=== PATIENT | female | born 1935 | race Caucasian/White ===

== ENCOUNTER 2016-12-18 07:28 | Day surgery (SDC) | payer MEDICARE ==
[~2016-12-18 07:28] MED LIST: CHONDR SU A NA/HYALUR INTRAOC KIT (SURGICARE) ONE; EPINEPHRINE INJ/PF 1 MG/1 ML AMPULE ONE; KETOROLAC TROMETHAMINE 0.45% 4 DROP/0.4 ML DROPERETTE OD PRN; LIDOCAINE 1% INJ-PF (10 MG/ML) 30 ML SDV ONE; TOBRAMYCIN SULFATE/DEXAMETH OPH OINTMENT 3.5 GM ONE
[2016-12-18] MEDS: TROPICAMIDE 1% OPH SOLN 3 ML OD PRN ×3 (07:57→08:17)
[2016-12-18] MEDS: CYCLOPENTOLATE 0.2%/PHENYLEPHRINE 1% OPH SOLN 2 ML OD PRN ×3 (07:57→08:17)
[2016-12-18] MEDS: BESIFLOXACIN HCL 0.6% OPH SUSP 5 ML BOTTLE OD PRN ×3 (07:57→08:59)
[2016-12-18] MEDS: LIDOCAINE 3.5% OPH GEL/PF 1 ML/TUBE OD PRN ×2 (07:58→08:17)
[2016-12-18] MEDS ORDERED: MIDAZOLAM 2 MG/2 ML INJ ONE ×2 (08:20→08:44)
[2016-12-18] MEDS ORDERED: FENTANYL CITRATE INJ/PF 100 MCG/2 ML AMPUL ONE (08:56)
== END 2016-12-18 09:41 | disposition home or self-care (01) ==
LOC: SC 07:28
PROVIDERS: ATTEND Ophthalmology
PROC: 08RJ3JZ Replacement of Right Lens with Synthetic Substitute, Percutaneous Approach (ICD-10-PCS; principal; 2016-12-18 08:30)
DX: H25.11 Age-related nuclear cataract, right eye (principal); M19.90 Unspecified osteoarthritis, unspecified site; I10 Essential (primary) hypertension; F32.9 Major depressive disorder, single episode, unspecified; K21.9 Gastro-esophageal reflux disease without esophagitis; Z79.899 Other long term (current) drug therapy
CPT/HCPCS: 66984; V2630; J2250; J3490 ×3; A9270 ×2; J0171; J3010; 142

== ENCOUNTER 2017-01-01 07:53 | Day surgery (SDC) | payer MEDICARE ==
[~2017-01-01 07:53] MED LIST changes: -KETOROLAC TROMETHAMINE 0.45% 4 DROP/0.4 ML DROPERETTE OD PRN; +KETOROLAC TROMETHAMINE 0.45% 4 DROP/0.4 ML DROPERETTE OS PRN
[2017-01-01] MEDS: CYCLOPENTOLATE 0.2%/PHENYLEPHRINE 1% OPH SOLN 2 ML OS PRN ×3 (08:10→08:32)
[2017-01-01] MEDS: TETRACAINE HCL 0.5% OPH SOLN 0.6 ML DROPERETTE OS PRN ×3 (08:10→08:58)
[2017-01-01] MEDS: TROPICAMIDE 1% OPH SOLN 3 ML OS PRN ×3 (08:10→08:32)
[2017-01-01] MEDS: BESIFLOXACIN HCL 0.6% OPH SUSP 5 ML BOTTLE OS PRN ×3 (08:10→09:18)
[2017-01-01] MEDS ORDERED: FENTANYL CITRATE INJ/PF 100 MCG/2 ML AMPUL ONE (08:42)
[2017-01-01] MEDS ORDERED: MIDAZOLAM 2 MG/2 ML INJ ONE ×2 (08:42→09:04)
== END 2017-01-01 10:10 | disposition home or self-care (01) ==
LOC: SC 07:53
PROVIDERS: ATTEND Ophthalmology
PROC: 08RK3JZ Replacement of Left Lens with Synthetic Substitute, Percutaneous Approach (ICD-10-PCS; principal; 2017-01-01 09:00)
DX: H25.12 Age-related nuclear cataract, left eye (principal); Z98.41 Cataract extraction status, right eye; I10 Essential (primary) hypertension; K21.9 Gastro-esophageal reflux disease without esophagitis; Z79.899 Other long term (current) drug therapy; Z87.891 Personal history of nicotine dependence
CPT/HCPCS: 66984; V2630; J2250; J3490 ×3; A9270; J0171; J3010; 142

== ENCOUNTER 2017-03-02 15:37 | Observation (INO) | payer MEDICARE ==
--- NOTE | 2017-03-02 17:43 | EKG REPORT ---
SEVERITY:- OTHERWISE NORMAL ECG - SINUS RHYTHM BORDERLINE LEFT AXIS DEVIATION : Confirmed by: Javed Scherer MD 02-Mar-2017 17:42:37
[2017-03-02 18:40] LABS: ABSOLUTE EOSINOPHILS # (AUTO) 0.3 10^3/uL (0.0-0.6); ABSOLUTE LYMPHOCYTES (AUTO) 1.7 10^3/uL (0.5-4.7); ABSOLUTE MONOCYTES (AUTO) 0.7 10^3/uL (0.1-1.4); BASOPHILS % (AUTO) 0.5 % (0-2); HEMATOCRIT 34.9 % (36.0-47.0); HEMOGLOBIN 11.4 g/dL (12.0-15.5); HGB HCT DIFFERENCE -0.7; LYMPHOCYTES % (AUTO) 19.2 % (13-45); MEAN CORPUSCULAR HEMOGLOBIN 26.2 pg (27.0-33.4); MEAN CORPUSCULAR HGB CONC 32.6 g/dL (32.0-36.0); MEAN CORPUSCULAR VOLUME 80 fl (80-97); MONOCYTES % (AUTO) 7.8 % (3-13); RED BLOOD COUNT 4.35 10^6/uL (3.72-5.28); RED CELL DISTRIBUTION WIDTH 15.6 % (11.5-14.0); SEGMENTED NEUTROPHILS % (AUTO) 69.5 % (42-78); WHITE BLOOD COUNT 8.7 10^3/uL (4.0-10.5)
--- NOTE | 2017-03-02 18:40 | ER Document Report ---
ED General - General Chief Complaint: Dizziness Stated Complaint: DIZZINESS Time Seen by Provider: 03/02/17 18:07 Mode of Arrival: Medic Information source: Patient, Relative Notes: This is an 82-year-old female with a history of hypertension who is brought in by EMS for headache, vertigo, difficulty ambulating and right-sided weakness. Patient is unable to state when the weakness started. TRAVEL OUTSIDE OF THE [place] IN LAST 30 DAYS: No - HPI Onset: This morning Onset/Duration: Gradual Quality of pain: No pain Severity: None Pain Level: Denies Associated symptoms: denies: Chills, Fever, Shortness of breath Exacerbated by: Denies Relieved by: Denies Similar symptoms previously: No Recently seen / treated by doctor: No - Related Data Allergies/Adverse Reactions: No Known Allergies Allergy (Verified 01/01/17 08:18) Home Medications: Current Home Medications Amlodipine Besylate [Amlodipine Besylate] 1 tab PO DAILY 03/02/17 [History] Benazepril HCl 20 mg PO DAILY 03/02/17 [History] Clonazepam [Clonazepam] 1 tab PO PRN PRN 03/02/17 [History] Hydrocodone/Acetaminophen [Hydrocodon-Acetaminophen 5-325] 1 each PO QID PRN 06/14 [History] Past Medical History - General Information source: Patient - Social History Smoking Status: Never Smoker Cigarette use (# per day): No Chew tobacco use (# tins/day): No Frequency of alcohol use: None Drug Abuse: None Lives with: Family Family History: Reviewed & Not Pertinent Patient has suicidal ideation: No Patient has homicidal ideation: No - Past Medical History Cardiac Medical History: Reports: Hx Hypertension - MEDICATED Denies: Hx Heart Attack Pulmonary Medical History: Denies: Hx Asthma Neurological Medical History: Denies: Hx Cerebrovascular Accident, Hx Seizures Renal/ Medical History: Denies: Hx Peritoneal Dialysis GI Medical History: Reports: Hx Hiatal Hernia - ALSO HX OF BARRETTS ESOPHAGUS. Denies: Hx Hepatitis, Hx Ulcer Infectious Medical History: Denies: Hx Hepatitis Past Surgical History: Reports: Hx Hysterectomy. Denies: Hx Mastectomy, Hx Open Heart Surgery, Hx Pacemaker Review of Systems - Review of Systems Constitutional: denies: Chills, Fever EENT: No symptoms reported Cardiovascular: No symptoms reported Respiratory: No symptoms reported Gastrointestinal: No symptoms reported Genitourinary: No symptoms reported Female Genitourinary: No symptoms reported Musculoskeletal: No symptoms reported Skin: No symptoms reported Hematologic/Lymphatic: No symptoms reported Neurological/Psychological: See HPI Physical Exam - Vital signs Vitals: Temp Pulse Resp BP Pulse Ox 97.5 F 83 14 173/71 H 97 03/02/17 15:42 03/02/17 15:42 03/02/17 15:42 03/02/17 15:42 03/02/17 15:42 Notes: Physical exam: GENERAL: 82-year-old female, alert and oriented 3, no acute distress HEAD: Normocephalic. Patient has mild bruising over the right temporal area from a fall 2 weeks ago. Patient has no tenderness over the temporal arteries. EYES: Pupils equal round and reactive to light, extraocular movements intact, sclera anicteric, conjunctiva are normal. ENT: TMs normal, nares patent, oropharynx clear without exudates. Moist mucous membranes. NECK: Normal range of motion, supple without obvious mass or JVD. LUNGS: Breath sounds clear to auscultation bilaterally and equal. No wheezes rales or rhonchi. HEART: Regular rate and rhythm without murmurs, rubs or gallops. ABDOMEN: Soft, normoactive bowel sounds. No tenderness to palpation. No guarding, no rebound. No masses appreciated. EXTREMITIES: Normal range of motion, no pitting or edema. No clubbing or cyanosis. NEUROLOGICAL: Cranial nerves II through XII grossly intact. Normal speech, moving all extremities. Motor exam: Patient does have weakness to the right upper and right lower extremity (4/5). Reflexes are symmetrical PSYCH: Normal mood, normal affect. SKIN: Warm, Dry, normal turgor, no rashes or lesions noted. Course - Re-evaluation Re-evalutation: 03/02/17 20:59 The patient does have right-sided weakness on exam and my suspicion is that she did have a CVA. She does not meet criteria for thrombolytics at this time. There is no way to know exactly when her symptoms started. She is unsure as to when exactly the weakness began. She had issues with vertigo a few weeks ago and again today. But she was not able to tell me a specific time on when the weakness started. - Vital Signs Vital signs: Temp Pulse Resp BP Pulse Ox 98.1 F 83 18 152/58 H 96 03/02/17 23:07 03/02/17 16:03 03/02/17 22:04 03/02/17 22:04 03/02/17 22:04 - Laboratory Result Diagrams: 03/02/17 15:55 03/02/17 15:55 Laboratory results interpreted by me: 03/02/17 03/02/17 03/02/17 15:55 15:55 18:34 Hgb 11.4 L Hct 34.9 L MCH 26.2 L RDW 15.6 H Sodium 145.2 H BUN 23 H Neonat Total Bilirubin 0.0 L Ur Leukocyte Esterase TRACE H - Diagnostic Test Radiology reviewed: Image reviewed, Reports reviewed - CT shows no obvious - EKG Interpretation by Me Rate: Normal Rhythm: NSR - EKG shows normal sinus rhythm with a ventricular rate of 70, no acute ST-T wave changes Discharge - Discharge Clinical Impression: CVA (cerebral vascular accident) Qualifiers: CVA mechanism: unspecified Qualified Code(s): I63.9 - Cerebral infarction, unspecified Condition: Stable Disposition: ADMITTED INPATIENT Admitting Provider: Hospitalist - Dr. Delong Unit Admitted: [facility]
[2017-03-02 18:46] LABS: ALBUMIN 4.1 g/dL (3.5-5.0); ANION GAP 12 (5-19); BILIRUBIN,DIRECT 0.3 mg/dL (0.0-0.4); BILIRUBIN,TOTAL 0.3 mg/dL (0.2-1.3); BLOOD UREA NITROGEN 23 mg/dL (7-20); CARBON DIOXIDE 27 mmol/L (22-30); CHLORIDE 106 mmol/L (98-107); CREATININE RESULT 0.86 mg/dL (0.52-1.25); GLUCOSE 103 mg/dL (75-110); POTASSIUM 3.8 mmol/L (3.6-5.0); SODIUM 145.2 mmol/L (137-145); TOTAL PROTEIN 6.9 g/dL (6.3-8.2)
[2017-03-02] MEDS ORDERED: METOCLOPRAMIDE HCL INJ/PF 10 MG/2 ML SDV IV ONE (18:57)
[2017-03-02] MEDS ORDERED: DIPHENHYDRAMINE HCL 50 MG/ML VIAL IV ONE (18:57)
[2017-03-02] MEDS ORDERED: ACETAMINOPHEN 325 MG TABLET PO ONE (18:58)
[2017-03-02 18:59] LABS: ALANINE AMINOTRANSFERASE 22 U/L (9-52); ALKALINE PHOSPHATASE 88 U/L (38-126); ASPARTATE AMINO TRANSFERASE 20 U/L (14-36); CALCIUM 9.3 mg/dL (8.4-10.2)
--- NOTE | 2017-03-02 19:01 | RADIOLOGY REPORT (SQ) ---
EXAM DESCRIPTION: CT HEAD WITHOUT COMPLETED DATE/TIME: 03/02/2017 6:49 pm REASON FOR STUDY: valdovinos, right sided weakness COMPARISON: None. TECHNIQUE: Axial images acquired through the brain without intravenous contrast. Images reviewed wi th bone, brain and subdural windows. Images stored on PACS. All CT scanners at this facility use dose modulation, iterative reconstruction, and/or weight based d osing when appropriate to reduce radiation dose to as low as reasonably achievable (ALARA). [facility]: Dose Right [facility]: CareDose [facility]: Dose Right [facility]: Teradose 4D [facility]: [employer] Technologies RADIATION DOSE: mGy. LIMITATIONS: None. FINDINGS: VENTRICLES: Age-appropriate. CEREBRUM: No masses. No hemorrhage. No midline shift. Areas of low density in the white matter mos t likely due to chronic micro-vascular ischemic change. No evidence for acute infarction. CEREBELLUM: No masses. No hemorrhage. No alteration of density. No evidence for acute infarction. EXTRAAXIAL SPACES: Age-related involutional change. No fluid collections. No masses. ORBITS AND GLOBE: No intra- or extraconal masses. Normal contour of globe without masses. CALVARIUM: No fracture. PARANASAL SINUSES: No fluid or mucosal thickening. SOFT TISSUES: No mass or hematoma. OTHER: No other significant finding. IMPRESSION: CHRONIC CHANGES OF ATROPHY AND MICROVASCULAR ISCHEMIA. NO ACUTE PROCESS. EVIDENCE OF ACUTE STROKE: NO. TECHNICAL DOCUMENTATION: JOB ID: [id number] [place]-72 Quality ID # [id number]: Final reports with documentation of one or more dose reduction techniques (e.g., Au tomated exposure control, adjustment of the mA and/or kV according to patient size, use of iterative reconstruction technique) 2010 [employer]- All Rights Reserved
[2017-03-02 19:03] LABS: ALCOHOL < 10 mg/dL (NONE DETECTED)
--- NOTE | 2017-03-02 19:11 | RADIOLOGY REPORT (SQ) ---
EXAM DESCRIPTION: CHEST SINGLE VIEW COMPLETED DATE/TIME: 03/02/2017 6:58 pm REASON FOR STUDY: headache, right sided weakness COMPARISON: None. EXAM PARAMETERS: NUMBER OF VIEWS: One view. TECHNIQUE: Single frontal radiographic view of the chest acquired. RADIATION DOSE: NA LIMITATIONS: None. FINDINGS: LUNGS AND PLEURA: No acute opacities, masses or pneumothorax. No pleural effusion. MEDIASTINUM AND HILAR STRUCTURES: No masses. Contour normal. HEART AND VASCULAR STRUCTURES: Heart normal in size. Normal vasculature. BONES: No acute findings. HARDWARE: None in the chest. OTHER: No other significant finding. IMPRESSION: NO ACUTE RADIOGRAPHIC FINDING IN THE CHEST. TECHNICAL DOCUMENTATION: JOB ID: [id number] [place]-72 2010 [employer]- All Rights Reserved
[2017-03-02 19:33] LABS: CREATINE KINASE MB 0.58 ng/mL (<4.55)
[2017-03-02 19:34] LABS: APPEARANCE,URINE CLEAR; BILIRUBIN,URINE NEGATIVE (NEGATIVE); GLUCOSE, URINE NEGATIVE (NEGATIVE); KETONES,URINE NEGATIVE (NEGATIVE); LEUKOCYTE ESTERASE,URINE TRACE (NEGATIVE); NITRITE,URINE NEGATIVE (NEGATIVE); PROTEIN,URINE NEGATIVE (NEGATIVE); URINE SPECIFIC GRAVITY 1.006; UROBILINOGEN,URINE NEGATIVE mg/dL (<2.0)
[2017-03-02 19:38] LABS: URINE BARBITURATES SCREEN NEGATIVE; URINE METHADONE SCREEN NEGATIVE; URINE OPIATES LOW UNCONFIRMED POSITIVE; URINE PHENCYCLIDINE SCREEN NEGATIVE
[2017-03-02 19:45] LABS: TROPONIN I < 0.012 ng/mL
[2017-03-02 20:04] LABS: RBC,URINE 0-1 /HPF; WBC,URINE 0-1 /HPF
[2017-03-02 20:05] LABS: BACTERIA,URINE TRACE /HPF
[2017-03-02] MEDS ORDERED: ACETAMINOPHEN 325 MG TABLET PO PRN (21:27)
[2017-03-02] MEDS ORDERED: MAGNESIUM HYDROXIDE SUSP 30 ML UDCUP PO PRN (21:27)
[2017-03-02] MEDS ORDERED: ONDANSETRON HCL INJ/PF 4 MG/2 ML SDV IV PRN (21:27)
[2017-03-02] MEDS ORDERED: DOCUSATE SODIUM 100 MG CAPSULE PO PRN (21:27)
[2017-03-02] MEDS ORDERED: LABETALOL HCL INJ 20 MG/4 ML DISP.SYRIN IV PRN (21:27)
[2017-03-02] MEDS ORDERED: MORPHINE SULFATE 10 MG/ML INJ IV ONE (21:32)
[2017-03-02] MEDS ORDERED: PROCHLORPERAZINE EDISYLATE INJ 10 MG/2 ML VIAL IV ONE (21:32)
[2017-03-02] MEDS ORDERED: (PENDING PHARMACY ID) (Clonazepam [Clonazepam] 1 TAB) PO PRN (21:33)
[2017-03-02] MEDS ORDERED: ASPIRIN 325 MG TABLET, ENT COATED PO ONE (22:00)
[2017-03-02] MEDS: ATORVASTATIN CALCIUM 80 MG TABLET PO SCH (22:16)
--- NOTE | 2017-03-02 22:25 | PDOC H&P ---
History of Present Illness Admission Date/PCP: 03/02/17 21:12 History of Present Illness: NANCY GILLETTE is a 82 year old female with past medical history of hypertension, hyperlipidemia, spinal stenosis, Bernard's esophagus, hiatal hernia who presents to the emergency department with complaints of vertigo. Patient reports she had an episode of vertigo approximately 2 weeks ago. She reports today she was about ready to drift off to sleep when she noticed that she began having vertigo that was worse when she turned her head to the right as well as right sided weakness starting at approximately 3 PM today. Patient presented to the emergency department outside the window for lytics. Patient reports that 2 weeks ago when she had an episode of vertigo she fell and hit her head on the door frame. She denies any associated nausea or vomiting, fevers chills, or antecedent illness. She is referred to the hospital service for concerns for acute CVA Past Medical History Cardiac Medical History: Reports: Hyperlipidema, Hypertension - MEDICATED Denies: Myocardial Infarction Pulmonary Medical History: Denies: Asthma EENT Medical History: Reports: Cataracts Neurological Medical History: Denies: Seizures GI Medical History: Reports: Hiatal Hernia - ALSO HX OF BARRETTS ESOPHAGUS, Other - Bernard's esophagus Denies: Hepatitis Hematology: Denies: Anemia, Sickle Cell Disease Past Surgical History Past Surgical History: Reports: Cholecystectomy, Hysterectomy, Other - Recent cataract surgery Denies: Amputation, Mastectomy, Pacemaker Social History Smoking Status: Never Smoker Frequency of Alcohol Use: None Hx Recreational Drug Use: No Hx Prescription Drug Abuse: No - Advance Directive Resuscitation Status: Full Code Surrogate healthcare decision maker:: Cecille Christie, daughter Family History Family History: CAD, Other - Old age Parental Family History Reviewed: Yes Children Family History Reviewed: Yes Sibling(s) Family History Reviewed.: Yes Medication/Allergy Home Medications: Flaxseed Oil [Flax Seed Oil] 1,000 mg PO QAM 12/13/16 Lovastatin [Altoprev] 40 mg PO QAM 12/13/16 Meloxicam 15 mg PO QAM 12/13/16 Omeprazole 40 mg PO QAM 12/13/16 Cholecalciferol (Vitamin D3) [Vitamin D3 1000 Unit Tablet] 2,000 unit PO DAILY 12/18/16 Amlodipine Besylate [Amlodipine Besylate] 1 tab PO DAILY 03/02/17 Benazepril HCl 20 mg PO DAILY 03/02/17 Clonazepam [Clonazepam] 1 tab PO PRN PRN 03/02/17 Hydrocodone/Acetaminophen [Hydrocodon-Acetaminophen 5-325] 1 each PO QID PRN 06/14 Allergies/Adverse Reactions: No Known Allergies Allergy (Verified 01/01/17 08:18) Review of Systems Constitutional: PRESENT: headache(s). ABSENT: chills, fever(s), weight gain, weight loss Eyes: ABSENT: visual disturbances Ears: ABSENT: hearing changes Nose, Mouth, and Throat: PRESENT: headache(s) Cardiovascular: PRESENT: dyspnea on exertion - More than normal, edema - Occasional. ABSENT: chest pain, orthropnea, palpitations Respiratory: ABSENT: cough, dyspnea, hemoptysis, sputum Gastrointestinal: ABSENT: abdominal pain, constipation, diarrhea, hematemesis, hematochezia, melena, nausea, vomiting Genitourinary: ABSENT: dysuria, hematuria Musculoskeletal: ABSENT: joint swelling Integumentary: ABSENT: rash, wounds Neurological: ABSENT: abnormal gait, abnormal speech, confusion, dizziness, focal weakness, syncope Psychiatric: ABSENT: anxiety, depression, homidical ideation, suicidal ideation Endocrine: ABSENT: cold intolerance, heat intolerance, polydipsia, polyuria Hematologic/Lymphatic: ABSENT: easy bleeding, easy bruising Physical Exam Vital Signs: Temp Pulse Resp BP Pulse Ox 97.5 F 83 20 115/74 96 03/02/17 15:42 03/02/17 16:03 03/02/17 21:05 03/02/17 21:05 03/02/17 21:05 General appearance: PRESENT: no acute distress, well-developed, well-nourished Head exam: PRESENT: normocephalic, other - Tenderness to palpation right jehovah's witness. ABSENT: atraumatic - Right temporal bruise Eye exam: PRESENT: conjunctiva pink, EOMI, PERRLA. ABSENT: conjunctival injection, periorbital swelling, scleral icterus Ear exam: PRESENT: normal external ear exam Mouth exam: PRESENT: moist, tongue midline Neck exam: ABSENT: carotid bruit, JVD, lymphadenopathy, thyromegaly, tracheal deviation Respiratory exam: PRESENT: clear to auscultation yifan, symmetrical, unlabored. ABSENT: rales, rhonchi, wheezes Cardiovascular exam: PRESENT: RRR, +S1, +S2, systolic murmur - 1/6 lusb. ABSENT : diastolic murmur, rubs Pulses: PRESENT: normal dorsalis pedis pul Vascular exam: PRESENT: normal capillary refill GI/Abdominal exam: PRESENT: normal bowel sounds, soft. ABSENT: distended, firm , guarding, mass, Morales's sign, organolmegaly, rebound, rigid, tenderness Rectal exam: PRESENT: deferred Extremities exam: PRESENT: full ROM. ABSENT: calf tenderness, clubbing, pedal edema Neurological exam: PRESENT: alert, awake, oriented to person, oriented to place , oriented to time, oriented to situation, CN II-XII grossly intact, motor sensory deficit - strength 4+/5 RUE, 4/5 RLE Psychiatric exam: PRESENT: appropriate affect, normal mood. ABSENT: homicidal ideation, suicidal ideation Skin exam: PRESENT: dry, intact, warm. ABSENT: cyanosis, rash Results Laboratory Results: 03/02/17 03/02/17 03/02/17 15:55 15:55 15:55 WBC 8.7 Hgb 11.4 L Hct 34.9 L Plt Count 292 Sodium 145.2 H Potassium 3.8 Chloride 106 Carbon Dioxide 27 BUN 23 H Creatinine 0.86 Glucose 103 Calcium 9.3 Magnesium 2.0 Total Bilirubin 0.3 Direct Bilirubin 0.3 ALT 22 Alkaline Phosphatase 88 Creatine Kinase 50 C-Reactive Protein Total Protein 6.9 Albumin 4.1 Ur Specific [place] Ur Leukocyte Esterase Urine RBC Urine WBC Ur Squamous Epith Cells Urine Bacteria Urine Mucus Urine Opiates Screen Serum Alcohol < 10 03/02/17 03/02/17 03/02/17 15:55 18:34 18:34 WBC Hgb Hct Plt Count Sodium Potassium Chloride Carbon Dioxide BUN Creatinine Glucose Calcium Magnesium Total Bilirubin Direct Bilirubin ALT Alkaline Phosphatase Creatine Kinase C-Reactive Protein 10.0 Total Protein Albumin Ur Specific [place] 1.006 Ur Leukocyte Esterase TRACE H Urine RBC 0-1 Urine WBC 0-1 Ur Squamous Epith Cells FEW Urine Bacteria TRACE Urine Mucus 3+ Urine Opiates Screen UNCONFIRMED POSITIVE Serum Alcohol Impressions: Head CT 03/02/17 18:37 IMPRESSION: CHRONIC CHANGES OF ATROPHY AND MICROVASCULAR ISCHEMIA. NO ACUTE PROCESS. EVIDENCE OF ACUTE STROKE: NO. Chest X-Ray 03/02/17 18:38 IMPRESSION: NO ACUTE RADIOGRAPHIC FINDING IN THE CHEST. Status: Imported from PACS Assessment & Plan - Diagnosis (1) CVA (cerebral vascular accident) Qualifiers: CVA mechanism: unspecified Qualified Code(s): I63.9 - Cerebral infarction, unspecified Is this a current diagnosis for this admission?: Yes Plan: Admit patient to IMCU Monitor on telemetry for arrhythmia Place patient on Lipitor and Aspirin MEND examinations q4H Obtain MRI, carotid doppler and ECHO Consult PT and OT Allow for permissive hypertension for the first 24 hours IV labetalol as needed systolic blood pressure greater than 180 (2) Hypertension Qualifiers: Hypertension type: essential hypertension Qualified Code(s): I10 - Essential (primary) hypertension Is this a current diagnosis for this admission?: Yes Plan: Continue home Norvasc and benazepril (3) Hyperlipidemia Qualifiers: Hyperlipidemia type: unspecified Qualified Code(s): E78.5 - Hyperlipidemia , unspecified Is this a current diagnosis for this admission?: Yes Plan: Check FLP (4) Barretts esophagus Qualifiers: Bernard's esophagus type: with dysplasia of unspecified degree Qualified Code(s): K22.719 - Bernard's esophagus with dysplasia, unspecified; K22.71 - Bernard's esophagus with dysplasia Is this a current diagnosis for this admission?: Yes Plan: Continue PPI (5) Spinal stenosis in cervical region Is this a current diagnosis for this admission?: Yes Plan: Vicodin as needed - Time Time Spent: 50 to 70 Minutes Medications reviewed and adjusted accordingly: Yes Anticipated discharge: Home Within: within 48 hours - Inpatient Certification Based on my medical assessment, after consideration of the patient's comorbidities, presenting symptoms, or acuity I expect that the services needed warrant INPATIENT care.: No I certify that my determination is in accordance with my understanding of Medicare's requirements for reasonable and necessary INPATIENT services [42 CFR 412.3e].: No Medical Necessity: Need For Continuous Telemetry Monitoring Post Hospital Care: D/C Bindery Operator Documentation
[2017-03-02 22:51] LABS: CREATINE KINASE MB 0.45 ng/mL (<4.55)
[2017-03-02 22:55] LABS: TROPONIN I < 0.012 ng/mL
[2017-03-02] MEDS: HEPARIN SOD (PORCINE) 5,000 UNIT/ML 1 ML SYRINGE SUBCUT SCH (23:44)
[2017-03-03] MEDS: HYDROCODONE/ACETAMINOPHEN 5-325 MG TABLET PO PRN ×2 (01:23→21:30)
[2017-03-03] MEDS: CLONAZEPAM 1 MG TABLET PO PRN ×2 (01:23→21:30)
[2017-03-03 04:39] LABS: Direct HDL 44 mg/dL (>40); TRIGLYCERIDES 166 mg/dL (<150)
[2017-03-03 04:51] LABS: DIRECT LDL 65 mg/dL (<100)
[2017-03-03 04:52] LABS: CREATINE KINASE MB 0.41 ng/mL (<4.55)
[2017-03-03 04:57] LABS: VLDL CHOLESTEROL 33.2 mg/dL (10-31)
[2017-03-03 04:59] LABS: TROPONIN I < 0.012 ng/mL
[2017-03-03] MEDS ORDERED: LANSOPRAZOLE 15 MG TAB.RAP.DR ONE (06:35)
[2017-03-03] MEDS: HEPARIN SOD (PORCINE) 5,000 UNIT/ML 1 ML SYRINGE SUBCUT SCH ×3 (07:11→21:30)
[2017-03-03] MEDS: LANSOPRAZOLE 15 MG TAB.RAP.DR PO SCH ×2 (07:11→18:17)
--- NOTE | 2017-03-03 08:28 | Physician Advisory Note ---
Physician Advisor ProgressNote .: Pursuant to the plan for [facility], I have reviewed the medical record for this patient. Physician Advisor Statement: Please consider documenting, if you agree: 1. " -> ? "Acute Cerebral ischemia of Lt ____ [location], with Rt dominant hemiparesis [if still weak in RLE as well], [resolved/improved/persistent]" 2. Medical necessity: if pt has , &/or has ongoing (or new) clinical problems that require continued stay for a 2nd MN 12/4 PM, please document these specifically & what is being done about them, & then may consider change to Inpatient status. --> 2nd MN can be justified based on "ongoing neurological deficits impacting ability to do ADLS", .... -> Inpatient appropirate. 3. "Atherosclerotic cerebrovascular disease" STatus: approp'ly brought in as Outpt Obs to start. See above. --> RUE (dominant) still weaker than LUE for OT at 14:00, & for nursing at 22: 00 on 03/03. OT notes poor standing balance & decreased ability to do ADLs due to loss of strength/function of dominant hand, need for ongoing therapy/rehab. -> clinically appropriate for 2nd MN in hospital, for ongoing tx. Appropriate to change to Inpatient status. CK (Corrections/additions (arrows) done 12/5 AM.)
--- NOTE | 2017-03-03 09:54 | PDOC PROGRESS REPORT ---
Subjective Progress Note for:: 03/03/17 Subjective:: Patient complains of being dizzy and having mild right hand weakness ROS All organ systems evaluated and negative except as in subjective All significant laboratories and diagnostics have been reviewed Reason For Visit: ACUTE CVA Physical Exam Vital Signs: Temp Pulse Resp BP Pulse Ox 98.4 F 54 L 17 139/58 H 95 03/03/17 04:00 03/03/17 04:00 03/03/17 06:01 03/03/17 06:01 03/03/17 06:01 Intake & Output 03/02/17 03/03/17 03/04/17 06:59 06:59 06:59 Weight 72.575 kg General appearance: PRESENT: no acute distress, cooperative, obese Head exam: PRESENT: atraumatic, normocephalic Eye exam: PRESENT: EOMI, PERRLA. ABSENT: nystagmus Ear exam: PRESENT: normal external ear exam Mouth exam: PRESENT: moist, neck supple Neck exam: PRESENT: full ROM. ABSENT: JVD, meningismus, thyromegaly Respiratory exam: PRESENT: clear to auscultation yifan Cardiovascular exam: PRESENT: RRR. ABSENT: diastolic murmur, systolic murmur Vascular exam: PRESENT: normal capillary refill GI/Abdominal exam: PRESENT: normal bowel sounds, soft. ABSENT: distended, tenderness Extremities exam: ABSENT: joint swelling, pedal edema Musculoskeletal exam: PRESENT: full ROM Neurological exam: PRESENT: alert, awake, oriented to person, oriented to place , oriented to time, other - Mild right upper extremity with weakness Psychiatric exam: PRESENT: appropriate affect, normal mood Skin exam: PRESENT: normal color Results Laboratory Results: 03/03/17 03:58 Triglycerides 166 H Cholesterol 143.40 LDL Cholesterol Direct 65 VLDL Cholesterol 33.2 H HDL Cholesterol 44 03/02/17 03/02/17 03/03/17 22:00 22:00 03:58 Creatine Kinase 45 40 CK-MB (CK-2) 0.45 Troponin I < 0.012 03/03/17 03:58 Creatine Kinase CK-MB (CK-2) 0.41 Troponin I < 0.012 Impressions: Head CT 03/02/17 18:37 IMPRESSION: CHRONIC CHANGES OF ATROPHY AND MICROVASCULAR ISCHEMIA. NO ACUTE PROCESS. EVIDENCE OF ACUTE STROKE: NO. Chest X-Ray 12/03/17 18:38 IMPRESSION: NO ACUTE RADIOGRAPHIC FINDING IN THE CHEST. Assessment & Plan - Diagnosis (1) CVA (cerebral vascular accident) Qualifiers: CVA mechanism: unspecified Qualified Code(s): I63.9 - Cerebral infarction, unspecified Is this a current diagnosis for this admission?: Yes Plan: Pending MRI, echocardiogram and carotid Dopplers. Concerned about the possibility of a posterior stroke.Will need rehab (2) Hyperlipidemia Qualifiers: Hyperlipidemia type: unspecified Qualified Code(s): E78.5 - Hyperlipidemia , unspecified Is this a current diagnosis for this admission?: Yes Plan: Continue Lipitor (3) Hypertension Qualifiers: Hypertension type: essential hypertension Qualified Code(s): I10 - Essential (primary) hypertension Is this a current diagnosis for this admission?: Yes Plan: Restart antihypertensives (4) Spinal stenosis in cervical region Is this a current diagnosis for this admission?: Yes Plan: Pain management - Time Time Spent with patient: 15-24 minutes Medications reviewed and adjusted accordingly: Yes Anticipated discharge: Acute Rehab Within: within 48 hours - Inpatient Certification Based on my medical assessment, after consideration of the patient's comorbidities, presenting symptoms, or acuity I expect that the services needed warrant INPATIENT care.: Yes I certify that my determination is in accordance with my understanding of Medicare's requirements for reasonable and necessary INPATIENT services [42 CFR 412.3e].: Yes Medical Necessity: Need Close Monitoring Due to Risk of Patient Decompensation
[2017-03-03 11:18] LABS: CREATINE KINASE MB 0.54 ng/mL (<4.55)
[2017-03-03 11:20] LABS: TROPONIN I < 0.012 ng/mL
--- NOTE | 2017-03-03 11:45 | RADIOLOGY REPORT (SQ) ---
EXAM DESCRIPTION: MRA HEAD WITHOUT COMPLETED DATE/TIME: 03/03/2017 11:31 am REASON FOR STUDY: right templar pain, right sided weakness COMPARISON: None. TECHNIQUE: Axial 3-D [id number] acquisition imaging performed through the brain in the area of t [place]. Images reformatted using 3-D MIPS. LIMITATIONS: None. FINDINGS: SOURCE IMAGES: No unexpected findings on source images. No large masses. 3-D MIP: No aneurysm. No occlusions. No significant stenosis. OTHER: No other significant finding. IMPRESSION: NORMAL MRA OF THE [place]. TECHNICAL DOCUMENTATION: JOB ID: [id number] [employer]- All Rights Reserved
[2017-03-03] MEDS: AMLODIPINE BESYLATE 5 MG TABLET PO SCH (11:53)
[2017-03-03] MEDS: ASPIRIN 325 MG TABLET, ENT COATED PO SCH (11:58)
[2017-03-03] MEDS: BENAZEPRIL HCL 20 MG TABLET PO SCH (11:58)
[2017-03-03] MEDS: CHOLECALCIFEROL (D3) 1,000 UNIT TABLET PO SCH (11:59)
--- NOTE | 2017-03-03 12:31 | RADIOLOGY REPORT (SQ) ---
EXAM DESCRIPTION: MRI HEAD WITHOUT COMPLETED DATE/TIME: 03/03/2017 11:31 am REASON FOR STUDY: right sided weakness, vertigo COMPARISON: None. TECHNIQUE: Multiplanar imaging includes non-contrasted T1, T2, FLAIR, and diffusion with ADC map seq uences. Images stored on PACS. LIMITATIONS: None. FINDINGS: ANATOMY: Empty sella anatomic variant. CSF SPACES: Atrophy induced prominence of ventricles and CSF spaces. CEREBRUM: High signal intensity lesions scattered throughout the white matter on FLAIR imaging with d istribution suggesting micro-vascular ischemic changes. No evidence of hemorrhage, mass, or extraaxi al fluid collection. POSTERIOR FOSSA: No signal alteration. No hemorrhage. No edema, masses or mass effect. Internal madal[place] tory canals, cerebello-pontine angles, mastoids normal. DIFFUSION IMAGING: Negative for acute or sub-acute infarction. ORBITS: No masses. Globes normal. PARANASAL SINUSES: No fluid levels. Mucosa normal. OTHER: No other significant finding. IMPRESSION: No acute abnormality in the brain. EVIDENCE OF ACUTE STROKE: NO. TECHNICAL DOCUMENTATION: JOB ID: [id number]- All Rights Reserved
[2017-03-03] MEDS: ATORVASTATIN CALCIUM 80 MG TABLET PO SCH (21:29)
[2017-03-04] MEDS: HEPARIN SOD (PORCINE) 5,000 UNIT/ML 1 ML SYRINGE SUBCUT SCH (07:03)
[2017-03-04] MEDS: LANSOPRAZOLE 15 MG TAB.RAP.DR PO SCH (07:04)
--- NOTE | 2017-03-04 11:01 | RADIOLOGY REPORT (SQ) ---
EXAM DESCRIPTION: CAROTID DOPPLER COMPLETED DATE/TIME: 03/04/2017 10:42 am REASON FOR STUDY: acute cva COMPARISON: None. TECHNIQUE: Grayscale ultrasound, Doppler velocity and spectra, and color Doppler images acquired of the extra-cranial carotid and vertebral arteries. Images stored on PACS. LIMITATIONS: None. FINDINGS: RIGHT CAROTID CCA Velocities: Within normal limits. ICA Velocities Peak systolic 1.01 m/s. End diastolic 0.23 m/s. Proximal ICA/CCA peak systolic ratio 1.0. Spectra normal. No significant plaque. LEFT CAROTID CCA Velocities: Within normal limits. ICA Velocities Peak systolic 1.2 m/s. End diastolic 0.2 m/s. Proximal ICA/CCA peak systolic ratio 1.2. Spectra normal. No significant plaque. VERTEBRAL ARTERIES: Antegrade flow. Normal waveforms. SUBCLAVIAN ARTERIES: No finding. OTHER: No other significant finding. IMPRESSION: NO HEMODYNAMICALLY SIGNIFICANT STENOSIS. COMMENT: Quality ID #[id number]: Velocity criteria are extrapolated from the diameter data as defined by t he Society of Radiologists in Ultrasound Consensus Conference. Radiology 2003: 229; 340-346. TECHNICAL DOCUMENTATION: JOB ID: [id number] [employer]- All Rights Reserved
[2017-03-04] MEDS: ASPIRIN 325 MG TABLET, ENT COATED PO SCH (11:13)
[2017-03-04] MEDS: AMLODIPINE BESYLATE 5 MG TABLET PO SCH (11:13)
[2017-03-04] MEDS: BENAZEPRIL HCL 20 MG TABLET PO SCH (11:13)
[2017-03-04] MEDS: CHOLECALCIFEROL (D3) 1,000 UNIT TABLET PO SCH (11:14)
[2017-03-04 12:54] VITALS: BP 155/63
--- NOTE | 2017-03-04 17:12 | PDOC DISCHARGE SUMMARY ---
General - Admit/Disc Date/PCP Admission Date/Primary Care Provider: 03/02/17 21:12 Discharge Date: 03/04/17 - Discharge Diagnosis (1) Dizziness Is this a current diagnosis for this admission?: Yes (2) Headache Is this a current diagnosis for this admission?: Yes (3) Hyperlipidemia Is this a current diagnosis for this admission?: Yes (4) Hypertension Is this a current diagnosis for this admission?: Yes (5) Spinal stenosis in cervical region Is this a current diagnosis for this admission?: Yes - Additional Information Resuscitation Status: Full Code Home Medications: Amlodipine Besylate [Norvasc 5 mg Tablet] 5 mg PO DAILY 03/03/17 Benazepril HCl [Lotensin 20 mg Tablet] 20 mg PO DAILY 03/03/17 Cholecalciferol (Vitamin D3) [Vitamin D3 2000 unit Tablet] 2,000 units PO DAILY 03/03/17 Clonazepam [Klonopin] 0.5 mg PO Q12HP PRN 03/03/17 Flaxseed Oil [Flaxseed] 1,000 mg PO QAM 03/03/17 Hydrocodone/Acetaminophen [[place] 5-325 mg Tablet] 1 tab PO Q6HP PRN 03/03/17 Lovastatin 40 mg PO QAM 03/03/17 Omeprazole 40 mg PO Q6AM 03/03/17 History of Present Illness History of Present Illness: NANCY GILLETTE is a 82 year old female with past medical history of hypertension, hyperlipidemia, spinal stenosis, Bernard's esophagus, hiatal hernia who presented to the emergency department with complaints of dizziness. Patient reported she had an episode of dizziness approximately 2 weeks ago. She reported she was about ready to drift off to sleep when she noticed that she began having dizziness that was worse when she turned her head to the right as well as right sided weakness starting at approximately 3 PM. Patient also complained of headache. Patient presented to the emergency department outside the window for lytics. Patient reported that 2 weeks ago when she had an episode of dizziness when she fell and hit her head on the door frame. She was referred to the hospital service for concerns for acute CVA Hospital Course Hospital Course: Patient was admitted to telemetry unit and there were no cardiac dysrhythmia noted. MRI of the brain did not show any evidence of a stroke. Carotid Doppler did not show any significant stenosis. Official report of echocardiogram still pending but can be followe up as outpatient. Patient reported that dizziness is better but still having headache off and on. Putting everything together there is a good possibility that patient may be having an atypical migraine variant. As far as the mild right-sided weakness ache and relate to an atypical migraine variant. She was encouraged as to follow -up with her primary care provider since if persistent she may even benefit from being evaluated by ENT. Patient has been encouraged to continue with regular medications however was advised as to avoid any nonsteroidals including meloxicam which she has been taking on a regular basis. Since patient had achieved maximum benefit of hospitalization stay prompted to discharge Physical Exam Vital Signs: Temp Pulse Resp BP Pulse Ox 97.6 F 74 16 153/81 H 98 03/04/17 07:23 03/04/17 08:00 03/04/17 08:00 03/04/17 08:00 03/04/17 08:00 Intake & Output 03/03/17 03/04/17 03/05/17 06:59 06:59 06:59 Intake Total 15 Output Total 1 Balance 14 Weight 72.575 kg 72.8 kg General appearance: PRESENT: no acute distress, cooperative, well-developed, well-nourished Head exam: PRESENT: atraumatic, normocephalic Eye exam: PRESENT: EOMI, PERRLA. ABSENT: nystagmus Ear exam: PRESENT: normal external ear exam Mouth exam: PRESENT: moist, neck supple Neck exam: PRESENT: full ROM, JVD. ABSENT: lymphadenopathy, meningismus, tenderness Respiratory exam: PRESENT: chest wall tenderness. ABSENT: crackles, rhonchi Cardiovascular exam: PRESENT: RRR. ABSENT: diastolic murmur, systolic murmur Vascular exam: PRESENT: normal capillary refill GI/Abdominal exam: PRESENT: normal bowel sounds, soft. ABSENT: distended, guarding, tenderness Extremities exam: PRESENT: full ROM. ABSENT: joint swelling, pedal edema Musculoskeletal exam: PRESENT: full ROM Neurological exam: PRESENT: alert, oriented to person, oriented to place, oriented to time Psychiatric exam: PRESENT: appropriate affect, normal mood Skin exam: PRESENT: normal color Results Laboratory Results: 03/02/17 03/02/17 03/03/17 22:00 22:00 03:58 Creatine Kinase 45 40 CK-MB (CK-2) 0.45 Troponin I < 0.012 03/03/17 03/03/17 03/03/17 03:58 10:17 10:17 Creatine Kinase 57 CK-MB (CK-2) 0.41 0.54 Troponin I < 0.012 < 0.012 Impressions: Head CT 03/02/17 18:37 IMPRESSION: CHRONIC CHANGES OF ATROPHY AND MICROVASCULAR ISCHEMIA. NO ACUTE PROCESS. EVIDENCE OF ACUTE STROKE: NO. Chest X-Ray 03/02/17 18:38 IMPRESSION: NO ACUTE RADIOGRAPHIC FINDING IN THE CHEST. Brain MRI with MRA 03/03/17 00:00 IMPRESSION: NORMAL MRA OF THE [place]. Head MRI 03/03/17 00:00 IMPRESSION: No acute abnormality in the brain. EVIDENCE OF ACUTE STROKE: NO. Carotid Doppler Study 03/04/17 00:00 IMPRESSION: NO HEMODYNAMICALLY SIGNIFICANT STENOSIS. Plan Discharge Plan: Discharge home Time Spent: Less than 30 Minutes
--- NOTE | 2017-03-04 18:45 | XCELERA REPORT ---
[address] [address] Transthoracic Echocardiogram Report Name: NANCY GILLETTE Age: 82 yrs Gender: Female : 1935 Patient Status: Inpatient Patient Location: [address] [place], [place] [id number] Study Date: 03/04/2017 10:05 AM Height: 62 in Weight: 159 lb BSA: 1.7 m2 Procedure: A two-dimensional transthoracic echocardiogram with color flow and Doppler was performed. Study Quality: Technically suboptimal. The study was technically limited with all images being suboptimal in quality. Reason For Study: murmur, cummings History: murmur, cummings. Ordering Physician: ZULEYKA DORSEY Performed By: Karen Martinez Interpretation Summary The left ventricle is normal in size. There is normal left ventricular wall thickness. LV EF is > than 65% Left ventricular systolic function is normal. Doppler measurements suggest normal left ventricular diastolic function The left ventricular wall motion is normal. There is no thrombus. There is no ventricular septal defect visualized. The right ventricle is normal in size and function. The left atrial size is normal. There is no evidence of mitral valve prolapse. There is no vegetation seen on the mitral valve. There is no mitral valve stenosis. There is a trace to mild amount of mitral regurgitation There is no aortic valvular vegetation. There is mild aortic stenosis There is a peak gradient of 22 mm of Hg. There is no LVOT obstruction. No aortic regurgitation is present. There is no tricuspid stenosis. There is a trace to mild amount of tricuspid regurgitation There is mild pulmonary hypertension by echo RVSP is 43 mm of Hg , with RA mean of 5. There is no pericardial effusion. MMode/2D Measurements & Calculations RVDd: 2.2 cm LVIDd: 4.9 cm FS: 38.5 % Ao root diam: 2.6 cm IVSd: 0.95 cm LVIDs: 3.0 cm EDV(Teich): 113.5 ml LVPWd: 0.95 cm ESV(Teich): 35.6 ml Ao root area: 5.3 cm2 EF(Teich): 68.6 % Doppler Measurements & Calculations MV E max sary: MV dec slope: Ao V2 max: LV V1 max P.4 cm/sec 232.2 cm/sec 8.9 mmHg MV A max sary: 432.5 cm/sec2 Ao max PG: LV V1 max: 91.6 cm/sec MV dec time: 21.6 mmHg 148.8 cm/sec MV E/A: 1.1 0.23 sec PA V2 max: TR max sary: 106.0 cm/sec 277.2 cm/sec PA max P.5 mmHgTR max P.0 mmHg Left Ventricle The left ventricle is normal in size. There is normal left ventricular wall thickness. LV EF is > than 65%. Left ventricular systolic function is normal. Doppler measurements suggest normal left ventricular diastolic function. The left ventricular wall motion is normal. There is no thrombus. There is no ventricular septal defect visualized. Right Ventricle The right ventricle is normal in size and function. Atria The right atrium is normal. The left atrial size is normal. The interatrial septum is intact with no evidence for an atrial septal defect. Mitral Valve There is no evidence of mitral valve prolapse. There is no vegetation seen on the mitral valve. There is no mitral valve stenosis. There is a trace to mild amount of mitral regurgitation. Aortic Valve There is no aortic valvular vegetation. There is mild aortic stenosis. There is a peak gradient of 22 mm of Hg. There is no LVOT obstruction. No aortic regurgitation is present. Tricuspid Valve There is no tricuspid stenosis. There is a trace to mild amount of tricuspid regurgitation. There is mild pulmonary hypertension by echo. RVSP is 43 mm of Hg , with RA mean of 5. Pulmonic Valve There is no pulmonic valvular stenosis. There is no pulmonic valvular regurgitation. Great Vessels The aortic root is normal size. Effusions There is no pericardial effusion. : ZULEYKA DORSEY > Kassie Solis
== END 2017-03-04 14:15 | disposition home or self-care (01) ==
LOC: ER 15:37 → EH 21:12 → INTOOBSV 21:12 → EH 03-03 00:59 → 3W 03-03 16:13
PROVIDERS: ADMIT Family Medicine; ATTEND Family Medicine
DX: R42 Dizziness and giddiness (principal); R51 Headache; E78.5 Hyperlipidemia, unspecified; I10 Essential (primary) hypertension; M48.02 Spinal stenosis, cervical region; R53.1 Weakness; K22.719 Barrett's esophagus with dysplasia, unspecified; R26.2 Difficulty in walking, not elsewhere classified; Z79.899 Other long term (current) drug therapy; Z91.81 History of falling; Z82.49 Family history of ischemic heart disease and other diseases of the circulatory system
CPT/HCPCS: 93005; 99285; 36415 ×2; 82553 ×2; 80307 ×2; 82550 ×2; 83735; 85025; 85652; 86140; 80053; 81001; 84484 ×2; 80061; 93306; 93880; 70551; 70544; 71010; 70450; 93010; 97163; 97166; A9270 ×13; J1644 ×3; J1200; J2765; J2270; J0780; J3490 ×3; G8978; G8979; G8987; G8988

== ENCOUNTER 2018-01-26 10:52 | Observation (INO) | payer MEDICARE ==
--- NOTE | 2018-01-26 11:13 | ER Document Report ---
ED Cardiac - General Stated Complaint: CHEST PAIN Time Seen by Provider: 01/26/18 10:56 TRAVEL OUTSIDE OF THE [place] IN LAST 30 DAYS: No - HPI Patient complains to provider of: Chest pain Was the onset of pain: Sudden Is the pain a: New problem Chest pain location: Substernal Quality of pain: Burning Chest pain radiation location: Neck Severity now: None Severity at worst: Moderate Pain level currently: Denies Chest pain precipitating factors: At Rest Cardiac risk factors: Hypertension, Dyslipidemia Associated symptoms: None Exacerbated by: Denies Relieved by: Nothing Notes: Patient is a 83-year-old female that presents to the emergency department for chief complaint of chest pain. Patient was at Dr. Hoff's office being evaluated for her Bernard's esophagus and started having chest pain. She states it is a sharp achy stabbing pain that is in her substernal region and radiates up to bilateral neck and jaw. The pain was constant for 1 hour and has completely resolved. She received 324 mg aspirin as well as 1 sublingual nitroglycerin prior to EMS with improvement of her symptoms. She denies any associated nausea, vomiting, diaphoresis or shortness of breath. She has had similar symptoms in the past but has not had a stress test done in many years. She denies history of cardiac disease or NE in the past. Past Medical History: Bernard's esophagus, hypertension, hyperlipidemia Past Surgical History: EGD Social History: Denies drugs alcohol and tobacco Family History: Reviewed and noncontributory for presenting illness Allergies: Reviewed, see documented allergy list. REVIEW OF SYSTEMS: CONSTITUTIONAL : No fever No chills No diaphoresis No recent illness EENT: No vision changes No congestion No sore throat CARDIOVASCULAR: chest pain No palpitations RESPIRATORY: No shortness of breath No cough No difficulty breathing GASTROINTESTINAL: No abdominal pain No nausea No vomiting No diarrhea GENITOURINARY: No dysuria No hematuria No difficulty urinating MUSCULOSKELETAL: No back pain No leg pain No arm pain SKIN: No rashes No lesions LYMPHATIC: No swollen, enlarged glands. NEUROLOGICAL: No lightheadedness No headache No weakness No paresthesias PSYCHIATRIC: No anxiety No depression PHYSICAL EXAMINATION: Vital signs reviewed, nursing noted reviewed. GENERAL: Well-appearing, well-nourished and in no acute distress. HEAD: Atraumatic, normocephalic. EYES: Eyes appear normal, extraocular movements intact, sclera anicteric, conjunctiva are normal. ENT: nares patent, oropharynx clear without exudates. Moist mucous membranes. NECK: Normal range of motion, supple without lymphadenopathy LUNGS: Breath sounds clear to auscultation bilaterally and equal. No wheezes rales or rhonchi. HEART: Regular rate and rhythm without murmurs ABDOMEN: Soft, nontender, normoactive bowel sounds. No rebound, guarding, or rigidity. No masses appreciated. EXTREMITIES: Nontender, good range of motion, no pitting or edema. NEUROLOGICAL: No focal neurological deficits. Moves all extremities spontaneously Motor and sensory grossly intact on exam. PSYCH: Normal mood, normal affect. SKIN: Warm, Dry, normal turgor, no rashes or lesions noted on exposed skin - Related Data Allergies/Adverse Reactions: No Known Allergies Allergy (Verified 01/01/17 08:18) Past Medical History - Social History Smoking Status: Former Smoker Family History: Reviewed & Not Pertinent - Past Medical History Cardiac Medical History: Reports: Hx Hypercholesterolemia, Hx Hypertension - MEDICATED Denies: Hx Heart Attack Pulmonary Medical History: Denies: Hx Asthma Neurological Medical History: Denies: Hx Cerebrovascular Accident, Hx Seizures Renal/ Medical History: Denies: Hx Peritoneal Dialysis GI Medical History: Reports: Hx Hiatal Hernia - ALSO HX OF BARRETTS ESOPHAGUS. Denies: Hx Hepatitis, Hx Ulcer Psychiatric Medical History: Denies: Hx Depression Infectious Medical History: Denies: Hx Hepatitis Past Surgical History: Reports: Hx Cholecystectomy, Hx Hysterectomy, Other - Recent cataract surgery. Denies: Hx Mastectomy, Hx Open Heart Surgery, Hx Pacemaker Review of Systems - Review of Systems Notes: Dictated Physical Exam - Vital signs Vitals: Pulse Ox 98 01/26/18 10:54 - Notes Notes: Dictated Course - Re-evaluation Re-evalutation: 01/26/18 11:12 Vitals reviewed. Nursing notes reviewed. Patient received aspirin and nitro prior to arrival. She is currently asymptomatic. 01/26/18 13:52 Patient reevaluated and is still pain-free. Cardiac workup including troponin is negative. Patient's heart score is greater than 3 and she will be admitted to the hospital for further telemetry monitoring and ACS rule out. Patient in agreement with this plan. Stable at time of admission. Case discussed with Dr. Alejandra Gorman 01/26/18 01/26/18 01/26/18 11:30 11:30 11:30 WBC 7.7 RBC 4.04 Hgb 10.8 L Hct 32.2 L MCV 80 MCH 26.8 L MCHC 33.6 RDW 14.5 H Plt Count 310 Seg Neutrophils % 70.9 Lymphocytes % 18.2 Monocytes % 8.1 Eosinophils % 1.8 Basophils % 1.0 Absolute Neutrophils 5.5 Absolute Lymphocytes 1.4 Absolute Monocytes 0.6 Absolute Eosinophils 0.1 Absolute Basophils 0.1 Sodium 143.2 Potassium 4.5 Chloride 108 H Carbon Dioxide 25 Anion Gap 10 BUN 28 H Creatinine 0.77 Est GFR ( Amer) > 60 Est GFR (Non-Af Amer) > 60 Glucose 127 H Calcium 9.4 Total Bilirubin 0.4 Direct Bilirubin 0.3 Neonat Total Bilirubin Not Reportable Neonat Direct Bilirubin Not Reportable Neonat Indirect Bili Not Reportable AST 23 ALT 15 Alkaline Phosphatase 79 Troponin I < 0.012 Total Protein 7.0 Albumin 4.1 Chest X-Ray 01/26/18 10:54 IMPRESSION: NO ACUTE RADIOGRAPHIC FINDING IN THE CHEST. who accepted admission. - Vital Signs Vital signs: Temp Pulse Resp BP Pulse Ox 36 H 135/61 H 96 01/26/18 13:01 01/26/18 13:01 01/26/18 13:01 - Laboratory Result Diagrams: 01/26/18 11:30 01/26/18 11:30 Laboratory results interpreted by me: 01/26/18 01/26/18 11:30 11:30 Hgb 10.8 L Hct 32.2 L MCH 26.8 L RDW 14.5 H Chloride 108 H BUN 28 H Glucose 127 H - EKG Interpretation by Me Additional EKG results interpreted by me: 01/26/18 11:29 Interpreted by myself: 1111: NSR, rate 68, and normal axis, no ectopy, no ST elevation Discharge - Discharge Clinical Impression: Chest pain Qualifiers: Chest pain type: unspecified Qualified Code(s): R07.9 - Chest pain, unspecified Condition: Stable Disposition: ADMITTED OBSERVATION Admitting Provider: Hospitalist Unit Admitted: Telemetry
--- NOTE | 2018-01-26 11:34 | EKG REPORT ---
SEVERITY:- BORDERLINE ECG - BORDERLINE LEFT AXIS DEVIATION SINUS RHYTHM : Confirmed by: Kassie Solis MD 26-Jan-2018 11:33:08
[2018-01-26 11:39] LABS: ABSOLUTE BASOPHILS # (AUTO) 0.1 10^3/uL (0.0-0.2); ABSOLUTE EOSINOPHILS # (AUTO) 0.1 10^3/uL (0.0-0.6); ABSOLUTE LYMPHOCYTES (AUTO) 1.4 10^3/uL (0.5-4.7); ABSOLUTE MONOCYTES (AUTO) 0.6 10^3/uL (0.1-1.4); ABSOLUTE NEUT (AUTO) 5.5 10^3/uL (1.7-8.2); EOSINOPHILS % (AUTO) 1.8 % (0-6); HEMATOCRIT 32.2 % (36.0-47.0); HEMOGLOBIN 10.8 g/dL (12.0-15.5); LYMPHOCYTES % (AUTO) 18.2 % (13-45); MEAN CORPUSCULAR HEMOGLOBIN 26.8 pg (27.0-33.4); MEAN CORPUSCULAR HGB CONC 33.6 g/dL (32.0-36.0); MEAN CORPUSCULAR VOLUME 80 fl (80-97); MONOCYTES % (AUTO) 8.1 % (3-13); PLATELET COUNT 310 10^3/uL (150-450); RED BLOOD COUNT 4.04 10^6/uL (3.72-5.28); RED CELL DISTRIBUTION WIDTH 14.5 % (11.5-14.0); SEGMENTED NEUTROPHILS % (AUTO) 70.9 % (42-78); TOTAL CELLS COUNTED % (AUTO) 100 %; WHITE BLOOD COUNT 7.7 10^3/uL (4.0-10.5)
[2018-01-26 11:58] LABS: ALANINE AMINOTRANSFERASE 15 U/L (9-52); ALBUMIN 4.1 g/dL (3.5-5.0); ALKALINE PHOSPHATASE 79 U/L (38-126); ANION GAP 10 (5-19); ASPARTATE AMINO TRANSFERASE 23 U/L (14-36); BILIRUBIN,DIRECT 0.3 mg/dL (0.0-0.4); BILIRUBIN,TOTAL 0.4 mg/dL (0.2-1.3); BLOOD UREA NITROGEN 28 mg/dL (7-20); CALCIUM 9.4 mg/dL (8.4-10.2); CARBON DIOXIDE 25 mmol/L (22-30); CHLORIDE 108 mmol/L (98-107); GLUCOSE 127 mg/dL (75-110); POTASSIUM 4.5 mmol/L (3.6-5.0); SODIUM 143.2 mmol/L (137-145)
--- NOTE | 2018-01-26 13:03 | RADIOLOGY REPORT (SQ) ---
EXAM DESCRIPTION: CHEST SINGLE VIEW COMPLETED DATE/TIME: 01/26/2018 11:33 am REASON FOR STUDY: bed 8 cp COMPARISON: 03/02/2017. EXAM PARAMETERS: NUMBER OF VIEWS: One view. TECHNIQUE: Single frontal radiographic view of the chest acquired. RADIATION DOSE: NA LIMITATIONS: None. FINDINGS: LUNGS AND PLEURA: No opacities, masses or pneumothorax. No pleural effusion. MEDIASTINUM AND HILAR STRUCTURES: No masses. Contour normal. HEART AND VASCULAR STRUCTURES: Heart normal in size. Normal vasculature. BONES: No acute findings. HARDWARE: None in the chest. OTHER: No other significant finding. IMPRESSION: NO ACUTE RADIOGRAPHIC FINDING IN THE CHEST. TECHNICAL DOCUMENTATION: JOB ID: [id number] [employer]- All Rights Reserved Reading location - IP/workstation name: [email or web address]
--- NOTE | 2018-01-26 16:45 | PDOC H&P ---
History of Present Illness Admission Date/PCP: 01/26/18 14:31 History of Present Illness: NANCY GILLETTE is a 83 year old female history of hiatal hernia, Bernard's esophagus, was at her [employer] [facility] clinic today when she developed chest pain. She states it radiated up her neck/jaw. She felt some shortness of breath and her blood pressure shot up. No tachycardia. Reports having stress a test several years ago that was normal. Patient was sent to the ED. Symptoms improved with nitro. EKG revealed NSR, rate 68, and normal axis, no ectopy, no ST elevation. She was referred to hospitalist service for further evaluation and management. Past Medical History Cardiac Medical History: Reports: Hyperlipidema, Hypertension - MEDICATED Denies: Myocardial Infarction Pulmonary Medical History: Denies: Asthma Neurological Medical History: Denies: Seizures GI Medical History: Reports: Hiatal Hernia - ALSO HX OF BARRETTS ESOPHAGUS Denies: Hepatitis Psychiatric Medical History: Denies: Depression Hematology: Denies: Anemia, Sickle Cell Disease Past Surgical History Past Surgical History: Reports: Cholecystectomy, Hysterectomy, Other - Recent cataract surgery Denies: Amputation, Mastectomy, Pacemaker Social History Smoking Status: Former Smoker Frequency of Alcohol Use: None Hx Recreational Drug Use: No Drugs: None Hx Prescription Drug Abuse: No Family History Family History: Reviewed & Not Pertinent Parental Family History Reviewed: Yes Children Family History Reviewed: Yes Sibling(s) Family History Reviewed.: Yes Medication/Allergy Home Medications: Amlodipine Besylate [Norvasc 5 mg Tablet] 5 mg PO DAILY 03/03/17 Benazepril HCl [Lotensin 20 mg Tablet] 20 mg PO DAILY 03/03/17 Cholecalciferol (Vitamin D3) [Vitamin D3 2000 unit Tablet] 2,000 units PO DAILY 03/03/17 Clonazepam [Klonopin] 0.5 mg PO QHS 03/03/17 Flaxseed Oil [Flaxseed] 1,000 mg PO QAM 03/03/17 Lovastatin 40 mg PO QAM 03/03/17 Omeprazole 40 mg PO Q6AM 03/03/17 Aspirin [Aspirin EC] 81 mg PO DAILY 01/26/18 L.acidoph,Paracasei, B.lactis [Probiotic] 1 each PO DAILY 01/26/18 Naproxen Sodium [Aleve] 220 mg PO PRN PRN 10/29/18 Allergies/Adverse Reactions: No Known Allergies Allergy (Verified 01/01/17 08:18) Review of Systems Review of Systems: CONSTITUTIONAL : Fever, chills -- No; unexpalined fatigue -- No EENT: Denies eye, ear, throat, or mouth pain or symptoms. Denies nasal or sinus congestion or discharge. Denies throat, tongue, or mouth swelling or difficulty swallowing. CARDIOVASCULAR: As in HPI. No racing heart RESPIRATORY: Denies cough, no shortness of breath, difficulty breathing. GASTROINTESTINAL: Denies abdominal pain or distention. Denies nausea, vomiting , or diarrhea. No rectal bleeding. GENITOURINARY: Urinary symptoms -- no. MUSCULOSKELETAL: No acute weakness SKIN: Denies rash, lesions or sores. HEMATOLOGIC : Denies easy bruising or bleeding. LYMPHATIC: Denies swollen, enlarged glands. NEUROLOGICAL: New weakness, headaches, slured speach - No PSYCHIATRIC: Changes anxiety or stress, depression, suicidal ideation, or homicidal ideation -- No ALL OTHER SYSTEMS REVIEWED AND NEGATIVE. Physical Exam Vital Signs: Temp Pulse Resp BP Pulse Ox 36 H 135/61 H 96 01/26/18 13:01 01/26/18 13:01 01/26/18 13:01 GENERAL: Well-developed, well-nourished female, no acute distress HEENT: Normocephalic/atraumatic, EOMI, PERRL NECK supple, no JVD CARDIOVASCULAR: RRR, normal S1-S2, no appreciable murmur LUNGS: CTA bilaterally ABDOMEN: Soft, NT, NL bowel sounds EXTREMITIES: No edema, clubbing, cyanosis NEUROLOGICAL: Alert, oriented x 3, nonfocal Results Laboratory Results: CBC significant for white blood cell 7.7, hemoglobin 10.8, hematocrit 32.2 platelets 310. Chem-7 significant for BUN 28 creatinine 0.77, normal sodium, potassium 4.1 Troponin less than 0.012 Impressions: Chest X-Ray 01/26/18 10:54 IMPRESSION: NO ACUTE RADIOGRAPHIC FINDING IN THE CHEST. Assessment & Plan - Diagnosis (1) Chest pain Qualifiers: Chest pain type: unspecified Qualified Code(s): R07.9 - Chest pain, unspecified Is this a current diagnosis for this admission?: Yes Plan: -This may be atypical given GI history and history of anxiety. However will rule out DC with serial troponin x3. Will treat with nitro, aspirin, continue statin. -Stress Cardiolite in a.m. Patient admitted to observation. Possible discharge home in a.m. if stress test negative. (2) Barretts esophagus Qualifiers: Bernard's esophagus type: with dysplasia of unspecified degree Qualified Code(s): K22.719 - Bernard's esophagus with dysplasia, unspecified; K22.71 - Bernard's esophagus with dysplasia Is this a current diagnosis for this admission?: Yes Plan: Continue PPI (3) Hypertension Qualifiers: Hypertension type: essential hypertension Qualified Code(s): I10 - Essential (primary) hypertension Is this a current diagnosis for this admission?: Yes Plan: Now improved/stable. We will continue outpatient medications. (4) Hyperlipidemia Qualifiers: Hyperlipidemia type: unspecified Qualified Code(s): E78.5 - Hyperlipidemia , unspecified Is this a current diagnosis for this admission?: Yes Plan: Continue statin.
[2018-01-26] MEDS ORDERED: NITROGLYCERIN 0.4 MG/TAB 25 TAB/BOTTLE SL PRN (16:53)
[2018-01-26] MEDS ORDERED: ACETAMINOPHEN 325 MG TABLET ONE (18:10)
[2018-01-26] MEDS: NITROGLYCERIN 2% OINTMENT 1 GM PACKET TP SCH (18:13)
[2018-01-26] MEDS: ASPIRIN 81 MG TABLET, ENT COATED PO SCH (18:13)
[2018-01-26] MEDS ORDERED: ACETAMINOPHEN 325 MG TABLET PO PRN (18:19)
[2018-01-26] MEDS ORDERED: (PENDING PHARMACY ID) (Clonazepam [Klonopin] 0.5 MG) PO SCH (22:00)
[2018-01-26] MEDS ORDERED: CLONAZEPAM 1 MG TABLET PO SCH (22:00)
[2018-01-27] MEDS: NITROGLYCERIN 2% OINTMENT 1 GM PACKET TP SCH ×2 (00:23→05:41)
[2018-01-27] MEDS ORDERED: LANSOPRAZOLE 30 MG TAB.RAP.DR PO SCH (06:00)
[2018-01-27 06:37] LABS: HEMATOCRIT 29.5 % (36.0-47.0); HEMOGLOBIN 9.8 g/dL (12.0-15.5); MEAN CORPUSCULAR HEMOGLOBIN 26.4 pg (27.0-33.4); MEAN CORPUSCULAR HGB CONC 33.1 g/dL (32.0-36.0); MEAN CORPUSCULAR VOLUME 80 fl (80-97); PLATELET COUNT 252 10^3/uL (150-450); RED BLOOD COUNT 3.69 10^6/uL (3.72-5.28); RED CELL DISTRIBUTION WIDTH 14.4 % (11.5-14.0); WHITE BLOOD COUNT 7.8 10^3/uL (4.0-10.5)
[2018-01-27 07:03] LABS: ANION GAP 11 (5-19); BLOOD UREA NITROGEN 26 mg/dL (7-20); CALCIUM 9.3 mg/dL (8.4-10.2); CARBON DIOXIDE 25 mmol/L (22-30); CHLORIDE 109 mmol/L (98-107); GLUCOSE 94 mg/dL (75-110); POTASSIUM 4.4 mmol/L (3.6-5.0); SODIUM 144.7 mmol/L (137-145)
[2018-01-27] MEDS: ASPIRIN 81 MG TABLET, ENT COATED PO SCH (09:28)
[2018-01-27] MEDS ORDERED: BENAZEPRIL HCL 20 MG TABLET PO SCH (10:00)
[2018-01-27] MEDS ORDERED: ENOXAPARIN SODIUM INJ 40 MG/0.4 ML DISP.SYRIN SUBCUT SCH (10:00)
[2018-01-27] MEDS ORDERED: AMLODIPINE BESYLATE 5 MG TABLET PO SCH (10:00)
[2018-01-27 10:12] VITALS: BP 126/70
[2018-01-27] MEDS ORDERED: BUTALB/ACETAMINOPHEN/CAFFEINE 1 TAB EACH PO ONE (11:30)
--- NOTE | 2018-01-27 15:43 | PDOC DISCHARGE SUMMARY ---
General - Admit/Disc Date/PCP Admission Date/Primary Care Provider: 01/26/18 14:31 Discharge Date: 01/27/18 - Discharge Diagnosis (1) Chest pain Is this a current diagnosis for this admission?: Yes Summary: Patient was admitted for chest pain after having what she felt was her usual esophageal pain while seeing her physician yesterday. Because of her chest pain insisted she come to the hospital for evaluation. Her pain had resolved prior to arrival and did not reoccur. She has had a previous stress test and did not want to have another one done. Because her serial cardiac enzymes and EKG were negative for cardiac injury or ischemia it was felt that she could be discharged home in improved and stable condition. (2) Barretts esophagus Is this a current diagnosis for this admission?: Yes Summary: Patient has a long history of Bernrad's esophagus and will be continued on her usual medications after her discharge today. (3) Headache Is this a current diagnosis for this admission?: Yes Summary: Patient has a 3-year history of chronic headache. She states she is told her primary care provider about this on several occasions but has never been treated for it. I have offered to treat her with diclofenac 75 mg p.o. twice daily times 15 days, Norflex extended release 100 mg p.o. twice daily times 15 days and butalbital acetaminophen 50/325 1 or 2 p.o. every 6 hours as needed severe headache. Patient will follow up with her primary care provider in 1-2 weeks for reevaluation. (4) Hypertension Is this a current diagnosis for this admission?: Yes Summary: Patient will be continued on her current prehospitalization medications for hypertension and other chronic medical problems. - Additional Information Discharge Diet: Cardiac Discharge Activity: Activity As Tolerated, Balance Activity w/Rest Prescriptions: Butalbital/Acetaminophen [Butalbital-Acetaminophn 50-300] 1 - 2 cap PO Q6HP PRN 15 Days #30 capsule PRN Reason: For Headache Diclofenac Sodium 75 mg PO BID 15 Days #30 tablet. Nitroglycerin [Nitrostat 0.4 mg (1/150 Gr) Tabs 25/Bottle] 1 tab SL Q5MP PRN 30 Days #1 bottle PRN Reason: Orphenadrine Citrate 100 mg PO BID 15 Days #30 tablet.er Home Medications: Amlodipine Besylate [Norvasc 5 mg Tablet] 5 mg PO DAILY 12/04/17 Benazepril HCl [Lotensin 20 mg Tablet] 20 mg PO DAILY 03/03/17 Cholecalciferol (Vitamin D3) [Vitamin D3 2000 unit Tablet] 2,000 units PO DAILY 03/03/17 Clonazepam [Klonopin] 0.5 mg PO QHS 03/03/17 Flaxseed Oil [Flaxseed] 1,000 mg PO QAM 03/03/17 Lovastatin 40 mg PO QAM 03/03/17 Omeprazole 40 mg PO Q6AM 03/03/17 Aspirin [Aspirin EC] 81 mg PO DAILY 01/26/18 L.acidoph,Paracasei, B.lactis [Probiotic] 1 each PO DAILY 01/26/18 Naproxen Sodium [Aleve] 220 mg PO PRN PRN 01/26/18 Butalbital/Acetaminophen [Butalbital-Acetaminophn 50-300] 1 - 2 cap PO Q6HP PRN 15 Days #30 capsule 01/27/18 Diclofenac Sodium 75 mg PO BID 15 Days #30 tablet.dr 01/27/18 Nitroglycerin [Nitrostat 0.4 mg (1/150 Gr) Tabs 25/Bottle] 1 tab SL Q5MP PRN 30 Days #1 bottle 01/27/18 Orphenadrine Citrate 100 mg PO BID 15 Days #30 tablet.er 01/27/18 History of Present Illness Patient complains of: Chest pain History of Present Illness: NANCY GILLETTE is an 83 year old female with a history of developing acute chest pain while she was at her [facility] clinic earlier on the day of admission. She stated it was a squeezing tightness in the center of her chest and that it radiated up into her neck/jaw. She admitted that the pain was similar to many episodes of pain she has had with her Bernard's esophagus in the past and as usual it was accompanied by some shortness of breath and rise in her blood pressure. She reported having stress a test several years ago that was normal. In the ED her symptoms improved with nitro, EKG revealed NSR, rate 68, and normal axis, no ectopy, no ST elevation. She was admitted to inpatient observation status for further evaluation of her chest pain. Hospital Course Hospital Course: Patient had serial cardiac enzyme evaluations and along with her unremarkable EKG, resulting in no evidence for acute cardiac injury or ischemia. A stress test was offered to the patient but she refused and stated she wished to go home. She insists that her pain was very typical for her Bernard's esophagus and that she would like to continue to treat it at home. To this and it was recommended to her that she obtain nitroglycerin 0.4 mg sublingual tablets 1 q. 5 minutes as needed chest pain up to 3 doses to use in the event of her Bernard' s esophagus attacks. She was instructed she should come to the hospital if her pain did not resolve within the time that it took to take 3 doses of nitroglycerin. She understood this and is agreeable to participation in this discharge plan. Additionally she complained of a headache that she has had for 3 years and was willing to accept a plan to be treated with diclofenac 75 mg p.o. twice daily plus Norflex 100 mg p.o. twice daily for base line treatment and use butalbital acetaminophen 50/325 1 or 2 capsules p.o. every 6 hours as needed severe headache pain. She will follow-up with her primary care provider in 1-2 weeks for further evaluation. Physical Exam Vital Signs: Temp Pulse Resp BP Pulse Ox 97.6 F 70 15 126/70 H 98 01/27/18 10:11 01/27/18 10:11 01/27/18 10:11 01/27/18 10:11 01/27/18 10:11 Intake & Output 01/25/18 01/26/18 01/27/18 23:59 23:59 23:59 Intake Total 300 Balance 300 Weight 75.4 kg General appearance: PRESENT: no acute distress, cooperative Head exam: PRESENT: atraumatic, normocephalic Eye exam: PRESENT: conjunctiva pink, EOMI. ABSENT: periorbital swelling Mouth exam: PRESENT: neck supple, tongue midline Neck exam: ABSENT: thyromegaly, tracheal deviation Respiratory exam: PRESENT: clear to auscultation yifan, symmetrical, unlabored Cardiovascular exam: PRESENT: RRR. ABSENT: clicks, gallop, rubs Vascular exam: PRESENT: normal capillary refill. ABSENT: pallor GI/Abdominal exam: PRESENT: normal bowel sounds, soft Rectal exam: PRESENT: deferred Extremities exam: ABSENT: joint swelling, pedal edema Musculoskeletal exam: PRESENT: ambulatory, full ROM Neurological exam: PRESENT: alert, oriented to person, oriented to place, oriented to time, oriented to situation, CN II-XII grossly intact. ABSENT: motor sensory deficit Psychiatric exam: PRESENT: appropriate affect, normal mood Skin exam: ABSENT: jaundice, rash, urticaria Results Laboratory Results: 01/27/18 05:38 01/27/18 05:38 01/27/18 01/27/18 05:38 05:38 WBC 7.8 RBC 3.69 L Hgb 9.8 L Hct 29.5 L MCV 80 MCH 26.4 L MCHC 33.1 RDW 14.4 H Plt Count 252 Sodium 144.7 Potassium 4.4 Chloride 109 H Carbon Dioxide 25 Anion Gap 11 BUN 26 H Creatinine 0.70 Est GFR ( Amer) > 60 Est GFR (Non-Af Amer) > 60 Glucose 94 Calcium 9.3 01/26/18 15:00 Troponin I < 0.012 Impressions: Chest X-Ray 01/26/18 10:54 IMPRESSION: NO ACUTE RADIOGRAPHIC FINDING IN THE CHEST. Qualifiers - * PATIENT BEING DISCHARGED WITH ANY OF THE FOLLOWING DIAGNOSIS: No Plan Discharge Plan: Discharged home in improved and stable condition Time Spent: Greater than 30 Minutes
== END 2018-01-27 11:16 | disposition home or self-care (01) ==
LOC: ER 10:52 → EH 14:31 → 4S 17:15
PROVIDERS: ADMIT Internal Medicine; ATTEND Internal Medicine
DX: R07.89 Other chest pain (principal); K22.719 Barrett's esophagus with dysplasia, unspecified; R51 Headache; I10 Essential (primary) hypertension; R06.02 Shortness of breath; E78.5 Hyperlipidemia, unspecified; F41.9 Anxiety disorder, unspecified; Z79.899 Other long term (current) drug therapy; Z79.82 Long term (current) use of aspirin; Z53.29 Procedure and treatment not carried out because of patient's decision for other reasons; Z90.49 Acquired absence of other specified parts of digestive tract; Z90.710 Acquired absence of both cervix and uterus; Z87.891 Personal history of nicotine dependence
CPT/HCPCS: 93005; 99285; 36415 ×2; 85025; 85027; 80048; 80053; 84484; 71045; 93010; G0378 ×3; A9270 ×4; J3490